=== PATIENT | female | born 1995 | race Caucasian/White ===

== ENCOUNTER 2018-09-21 01:42 | Emergency (ER) | payer MEDICAID ==
[~2018-09-21] VITALS: Ht 167.6 cm; Wt 90.7 kg
[2018-09-21 01:42] VITALS: BP 97/65
[2018-09-21] MEDS ORDERED: ONDANSETRON 4 MG/2 ML VIAL IVP ONE (01:45)
[2018-09-21] MEDS ORDERED: NACL 0.9% 1,000 ML IV ONE (01:45)
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
[2018-09-21 02:08] LABS: BASOPHILS % (AUTO) 0.5 % (0.0-2.0); EOSINOPHILS % (AUTO) 0.4 % (0.0-4.0); HEMATOCRIT 38.7 % (36-48); HEMOGLOBIN 12.7 g/dL (12.0-16.0); LYMPHOCYTES # (AUTO) 2.3 K/uL (2.5-16.5); LYMPHOCYTES % (AUTO) 22.1 % (20.5-51.1); MEAN CORPUSCULAR HEMOGLOBIN 27 pg (27-31); MEAN CORPUSCULAR HGB CONC 33 g/dL (33-37); MONOCYTES # (AUTO) 0.5 K/uL (0.8-1.0); MONOCYTES % (AUTO) 4.8 % (1.7-9.3); NEUTROPHILS # (AUTO) 7.4 K/uL (1.8-7.7); NEUTROPHILS % (AUTO) 72.2 % (42.2-75.2); PLATELET COUNT (AUTO) 223 K/uL (140-450); RED BLOOD CELL COUNT(AUTO) 4.66 MIL/uL (4.20-5.40); RED CELL DISTRIBUTION WIDTH 12.4 % (11.6-13.7); WHITE BLOOD COUNT (AUTO) 10.2 K/uL (4.8-10.8)
--- NOTE | 2018-09-21 02:10 | NUR ---
PT O2 SAT AT 89, PT PLACED ON 4L NASAL CANNULA. PT O2 AFTER NASAL CANNULA OXYGEN PLACED IS AT 100%. WILL CONTINUE TO MONITOR.
--- NOTE | 2018-09-21 02:15 | NUR ---
#14 FR Urinary catheter inserted utilizing sterile technique. Immediate return of clear, yellow urine noted; catheter removed tip intact. Urine sample collected and sent to lab. Jyoti care, gown change, and comfort measures provided. Pt tolerated procedure well.
[2018-09-21 02:26] LABS: ALBUMIN 3.5 g/dL (3.4-5.0); ANION GAP 16.3 (8-16); ASPARTATE AMINOTRANSFERASE 19 U/L (15-37); CARBON DIOXIDE 21.5 mmol/L (21-32); CHLORIDE 104 mmol/L (98-107); CREATININE 0.9 mg/dL (0.6-1.3); GFR ARICAN-AMERICAN 102 mL/min (>90); GLUCOSE 128 mg/dL (74-106); SODIUM SERUM 139 mmol/L (136-145); TOTAL BILIRUBIN 0.2 mg/dL (0.0-1.0); UREA NITROGEN, BLOOD 11 mg/dL (7-18)
[2018-09-21 02:42] LABS: POTASSIUM 2.8 mmol/L (3.5-5.1); SALICYLATE < 2.8 mg/dL (2.8-20.0)
[2018-09-21 02:43] LABS: ACETAMINOPHEN < 0.5 ug/ml (10-30)
--- NOTE | 2018-09-21 02:53 | NUR ---
FATHER AT BEDSIDE.
[2018-09-21 02:56] LABS: BARBITURATE, URINE NEG. ng/ml (NEG <=200); BENZODIAZEPINE, URINE NEG. ng/mL (NEG <=200); CANNABINOID, URINE NEG. ng/mL (NEG <=50); COCAINE, URINE NEG. ng/mL (NEG <=300); OPIATE, URINE NEG. ng/mL (NEG <=2000); PHENCYCLIDINE SCREEN,URINE NEG. ng/mL (NEG <=25)
[2018-09-21] MEDS ORDERED: KCL 20 MEQ/WATER INJ PREMIX 100 ML IV ONE (03:30)
--- NOTE | 2018-09-21 03:53 | NUR ---
PT IS RESPONDING TO QUESTIONS INNAPROPRIATLY, OPENING AND CLOSING EYES, STATES 0/10 PAIN AT THIS TIME. PT DENIES PAIN AT THIS TIME. SAFETY PRECAUTIONS IN PLACE. WILL CONTINUE TO MONITOR.
--- NOTE | 2018-09-21 04:50 | NUR ---
PT SLEEPING, CHEST RISE AND FALL EQUAL AND UNLABORED. VSS. WILL CONTINUE TO MONITOR.
--- NOTE | 2018-09-21 05:35 | NUR ---
PT IS AAOX4, ACTING APPROPRIATLY, PT AMBULATED TO BR W/ STEADY GATE. PT BACK IN BED, SAFETY PRECAUTIONS IN PLACE. PT STATES 0/10 PAIN AT THIS TIME.
[2018-09-21 06:25] VITALS: BP 109/61
--- NOTE | 2018-09-21 06:27 | NUR ---
Patient discharged with v/s stable. Written and verbal after care instructions given and explained. Patient verbalized understanding. Ambulatory with steady gait. All questions addressed prior to discharge. Advised to follow up with PMD.
== END 2018-09-21 06:25 | disposition home or self-care (01) ==
LOC: MED 01:42
DX: F10.129 Alcohol abuse with intoxication, unspecified (principal)
CPT/HCPCS: 36415; 80053; 80305; 85025; 96361; 96365; 96366; 96375; 99283; G0480; G0482; J2405; J3480; J7030